=== PATIENT | female | born 1980 | race Two or more races ===

== ENCOUNTER 2016-06-09 11:17 | Emergency (ER) | payer OTHER ==
[2016-06-09 11:24] VITALS: BP 99/59; PULSE 65; TEMP 98; BMI 22.3
[2016-06-09] MEDS ORDERED: KETOROLAC TROMETHAMINE 30 MG/1 ML VIAL IM ONE (13:16)
[2016-06-09] MEDS ORDERED: CYCLOBENZAPRINE HCL 10 MG TABLET (FP) PO ONE (13:16)
--- NOTE | 2016-06-09 13:22 | PDOC ---
History of Present Illness - General Chief Complaint: Pain, Acute Stated Complaint: UPPER BACK PAIN Time Seen by Provider: 06/09/16 13:07 - History of Present Illness Initial Comments: 06/09/16 13:16 35-year-old female with a negative past medical history She is on no medications, and is ALLERGIC to Zofran She states in December, shortly after she had her baby, she pulled out her back lifting up the baby She pulled out her left upper back She states that she was on a muscle relaxer and that made her feel better She states she is no longer nursing at this time She says that in the past few days she pulled out her left upper back again lifting the child She states it hurts to move, and feels like her upper back muscles are in spasm She states it feels like it did the last time that she pulled out her back She denies any shortness of breath or cough She denies any chest pain She denies any palpitations She denies any other complaints at this time Past History - Past Medical History Allergies/Adverse Reactions: Allergies Allergy/AdvReac Type Severity Reaction Status Date / Time ondansetron HCl Allergy Verified 06/09/16 11:18 [From Zofran (as hydrochloride)] Home Medications: Ambulatory Orders Cyclobenzaprine HCl [Flexeril -] 10 mg PO TID #21 tablet 06/09/16 Other medical history: DENIES - Psycho/Social/Smoking Cessation Hx Anxiety: No Suicidal Ideation: No Smoking History: Never smoked Hx Alcohol Use: No Drug/Substance Use Hx: No Substance Use Type: None *Physical Exam - Vital Signs Last Vital Signs Temp Pulse Resp BP Pulse Ox 98 F 65 18 99/59 100 06/09/16 11:18 06/09/16 11:18 06/09/16 11:18 06/09/16 11:18 06/09/16 11:18 - Physical Exam Comments: 06/09/16 13:17 Physical exam Last Vital Signs Temp Pulse Resp BP Pulse Ox 98 F 65 18 99/59 100 06/09/16 11:18 06/09/16 11:18 06/09/16 11:18 06/09/16 11:18 06/09/16 11:18 Patient is alert and ambulatory and answering questions without difficulty Head is normocephalic and atraumatic BACK: There is no C-spine T-spine or LS-spine tenderness There is no CVA tenderness There is some nayan- scapular muscle tenderness and spasm, and some left lateral trapezius muscle tenderness and spasm There is full range of motion of the left shoulder Heart is regular rate and rhythm without murmurs gallops or heaves Abdomen is soft and nontender Lungs clear bilat Medical Decision Making - Medical Decision Making 06/09/16 13:19 Left periscapular and left lateral trapezius muscle spasm and strain We'll treat with nonsteroidals and Flexeril *DC/Admit/Observation/Transfer Diagnosis at time of Disposition: Periscapular pain, Muscle spasm, Muscle strain of left upper back - Discharge Dispostion Disposition: HOME Condition at time of disposition: Stable - Prescriptions Prescriptions: Cyclobenzaprine HCl [Flexeril -] 10 mg PO TID #21 tablet - Patient Instructions Additional Instructions: Rest, warm compresses, no lifting Hprxjh-icth-ntb-counter-3 times a day-every 8 hours Bvxmiyqk-nmrpqvmykmwe-bcx pill 3 times a day-every 8 hours-this is a muscle relaxer and may cause some drowsiness Warm showers or warm compresses Followup with your primary care physician in 24-48 hours Return immediately if you worsen in any way Take your medications as directed
[2016-06-09] MEDS ORDERED: KETOROLAC TROMETHAMINE 30 MG/1 ML VIAL ONE (13:26)
[2016-06-09] MEDS ORDERED: CYCLOBENZAPRINE HCL 10 MG TABLET (FP) ONE (13:26)
== END 2016-06-09 13:31 | disposition home or self-care (01) ==
LOC: FER 11:17
PROC: 3E0333Z Introduction of Anti-inflammatory into Peripheral Vein, Percutaneous Approach (ICD-10-PCS; principal; 2016-06-09)
DX: M54.89 Other dorsalgia (principal); M62.830 Muscle spasm of back; S29.012A Strain of muscle and tendon of back wall of thorax, initial encounter; X58.XXXA Exposure to other specified factors, initial encounter; Y93.89 Activity, other specified; Y92.9 Unspecified place or not applicable
CPT/HCPCS: 96372; 99282-25

== ENCOUNTER 2020-04-20 18:09 | Emergency (ER) | payer OTHER ==
[2020-04-20 18:34] VITALS: TEMP 98.1; BMI 22.3
[2020-04-20] MEDS ORDERED: MAG HYDROX/AL HYDROX/SIMETH -MYLANTA- ORAL SUSPENSION PO ONE (20:02)
[2020-04-20] MEDS ORDERED: FAMOTIDINE 20 MG/50 ML IVPB 20 MG/50 ML MG IVPB ONE ×2 (20:03→20:33)
[2020-04-20] MEDS ORDERED: MAG HYDROX/AL HYDROX/SIMETH 30 ML UNIT-DOSE CUP ONE (20:33)
[2020-04-20 21:02] LABS: HEMATOCRIT 24.7 % (32.4-45.2); HEMOGLOBIN 7.6 GM/dL (10.7-15.3); MCH 22.2 pg (25.7-33.7); MEAN CELL VOLUME 71.9 fl (80-96); MEAN PLT VOLUME 8.2 fl (7.5-11.1); PLATELET COUNT 231 K/MM3 (134-434); RBC 3.43 M/mm3 (3.60-5.2); RDW 18.4 % (11.6-15.6); WHITE BLOOD COUNT 8.6 K/mm3 (4.0-10.0)
[2020-04-20 21:31] LABS: CHLORIDE 105 mmol/L (98-107); POTASSIUM 3.6 mmol/L (3.5-5.1); SODIUM 136 mmol/L (136-145)
[2020-04-20] MEDS ORDERED: LACTATED RINGERS SOLUTION 1000 ML INFUS.BAG IV ONE (21:33)
[2020-04-20 21:34] LABS: CALCIUM 8.6 mg/dL (8.5-10.1)
[2020-04-20 21:35] LABS: ANION GAP 7 MMOL/L (8-16); BLOOD UREA NITROGEN 5.9 mg/dL (7-18); CO2 24 mmol/L (21-32); GLUCOSE,RANDOM 69 mg/dL (74-106)
[2020-04-20 21:38] LABS: CREATININE 0.4 mg/dL (0.55-1.3); SGOT/AST 35 U/L (15-37); SGPT/ALT 30 U/L (13-61)
[2020-04-20 21:39] LABS: BILIRUBIN,TOTAL 0.3 mg/dL (0.2-1); TOT PROT 7.2 g/dl (6.4-8.2)
[2020-04-20 21:40] LABS: ALK PHOS 93 U/L (45-117)
[2020-04-20 23:02] VITALS: BP 107/60; PULSE 95
== END 2020-04-20 23:03 | disposition home or self-care (01) ==
LOC: JER 18:09
PROC: 3E033NZ Introduction of Analgesics, Hypnotics, Sedatives into Peripheral Vein, Percutaneous Approach (ICD-10-PCS; principal; 2020-04-20)
DX: R10.13 Epigastric pain (principal); R07.9 Chest pain, unspecified; D50.9 Iron deficiency anemia, unspecified
CPT/HCPCS: 36415; 80053; 82550; 83690; 84484; 85027; 93005; 93010; 99285-25

== ENCOUNTER 2020-05-01 05:07 | Day surgery (SDC) | payer OTHER ==
[2020-05-01] MEDS ORDERED: HYDROCORTISONE SOD SUCCINATE 100 MG/2 ML VIAL IVPUSH PRN (12:09)
[2020-05-01] MEDS ORDERED: diphenhydrAMINE HCL 25 MG CAPSULE (FP) PO ONE (12:30)
[2020-05-01] MEDS ORDERED: IRON SUCROSE INJECTION 200 MG in SODIUM CHLORIDE 100 ML IVPB ONE (12:30)
[2020-05-01 12:34] LABS: HEMATOCRIT 22.7 % (32.4-45.2); MCH 22.1 pg (25.7-33.7); MCHC 30.9 g/dl (32.0-36.0); MEAN CELL VOLUME 71.5 fl (80-96); MEAN PLT VOLUME 8.2 fl (7.5-11.1); PLATELET COUNT 220 K/MM3 (134-434); RBC 3.18 M/mm3 (3.60-5.2); RDW 18.9 % (11.6-15.6); WHITE BLOOD COUNT 8.3 K/mm3 (4.0-10.0)
[2020-05-01 13:18] VITALS: BP 111/54; PULSE 100; TEMP 98.3
== END 2020-05-01 13:51 | disposition home or self-care (01) ==
LOC: JINFUSION 05:07
PROVIDERS: ATTEND Obstetrics & Gynecology
PROC: 3E033GC Introduction of Other Therapeutic Substance into Peripheral Vein, Percutaneous Approach (ICD-10-PCS; principal; 2020-05-01)
DX: D50.9 Iron deficiency anemia, unspecified (principal)
CPT/HCPCS: 36415; 82728; 85027; 96365; J1756

== ENCOUNTER 2020-05-09 04:39 | Day surgery (SDC) | payer OTHER ==
[2020-05-09] MEDS ORDERED: IRON SUCROSE INJECTION 200 MG in SODIUM CHLORIDE 90 ML IVPB ONE (10:30)
[2020-05-09 11:40] VITALS: BP 104/50; PULSE 97; TEMP 98
== END 2020-05-09 11:40 | disposition home or self-care (01) ==
LOC: JINFUSION 04:39
PROVIDERS: ATTEND Obstetrics & Gynecology
PROC: 3E033GC Introduction of Other Therapeutic Substance into Peripheral Vein, Percutaneous Approach (ICD-10-PCS; principal; 2020-05-09)
DX: D50.9 Iron deficiency anemia, unspecified (principal)
CPT/HCPCS: 96365; J1756

== ENCOUNTER 2020-07-03 08:40 | Inpatient (IN) | payer OTHER ==
[~2020-07-03 08:40] MED LIST: DEXTROSE 5%-LACTATED RINGERS 1,000 ML IV SCH
[2020-07-03] MEDS ORDERED: BUTORPHANOL TARTRATE 2 MG/ML VIAL IVPB PRN (10:51)
[2020-07-03] MEDS ORDERED: PROMETHAZINE HCL 25 MG/1 ML VIAL IVPB ONE (10:51)
[2020-07-03 11:00] VITALS: BMI 25.5
[2020-07-03] MEDS ORDERED: ELECTROLYTE-148 SOLN 1,000 ML IV SCH (11:00)
[2020-07-03] MEDS ORDERED: DINOPROSTONE 10 MG VAGINAL SUPPOSITORY VG ONE (11:04)
[2020-07-03 11:13] LABS: BASO % 0.5 % (0-2.0); EOS % 3.1 % (0-4.5); HEMATOCRIT 22.8 % (32.4-45.2); HEMOGLOBIN 7.2 GM/dL (10.7-15.3); LYMPH % 29.7 % (8-40); MCH 22.6 pg (25.7-33.7); MCHC 31.7 g/dl (32.0-36.0); MEAN CELL VOLUME 71.3 fl (80-96); MEAN PLT VOLUME 9.1 fl (7.5-11.1); MONO % 6.9 % (3.8-10.2); NEUT % 59.8 % (42.8-82.8); PLATELET COUNT 174 K/MM3 (134-434); RDW 22.1 % (11.6-15.6); WHITE BLOOD COUNT 6.4 K/mm3 (4.0-10.0)
[2020-07-03 11:14] LABS: INR 1.03 (0.83-1.09); PROTHROMBIN TIME (PATIENT) 12.4 SEC (9.7-13.0)
[2020-07-03 11:16] LABS: ACTIVATED PTT 25.3 SECONDS (25.2-36.5)
[2020-07-03 11:31] LABS: POTASSIUM 3.6 mmol/L (3.5-5.1)
[2020-07-03 11:32] LABS: BLOOD UREA NITROGEN 5.2 mg/dL (7-18); CALCIUM 8.4 mg/dL (8.5-10.1)
[2020-07-03 11:36] LABS: CREATININE 0.3 mg/dL (0.55-1.3)
[2020-07-03] MEDS ORDERED: OXYTOCIN 30 UNITS in 0.9% NS 30 UNIT/500 ML INFUS.BAG IVPB ONE (12:14)
[2020-07-03] MEDS ORDERED: OXYTOCIN 30 UNITS in 0.9% NS 30 UNIT/500 ML INFUS.BAG IVPB SCH (12:15)
[2020-07-03 14:08] LABS: ANISOCYTOSIS 1+; MACROCYTOSIS 0; PLATELET ESTIMATE NORMAL
[2020-07-03] MEDS ORDERED: BUTORPHANOL TARTRATE 2 MG/ML VIAL ONE (14:28)
[2020-07-03] MEDS ORDERED: PROMETHAZINE HCL 25 MG/1 ML VIAL ONE (14:28)
[2020-07-03] MEDS ORDERED: FENTANYL/BUPIVACAINE/NS/PF - PCEA - 50 ML DISP.SYRIN EP ONE (22:30)
[2020-07-03] MEDS ORDERED: PCA PUMP NR ONE (22:30)
[2020-07-04] MEDS ORDERED: NALOXONE HCL 0.4 MG/ML VIAL IVPUSH PRN ×2 (01:18→01:20)
[2020-07-04] MEDS ORDERED: FENTANYL/BUPIVACAINE/NS/PF - PCEA - 50 ML DISP.SYRIN EP SCH ×2 (01:30)
[2020-07-04] MEDS ORDERED: FENTANYL/BUPIVACAINE/NS/PF - PCEA - 50 ML DISP.SYRIN EP ONE ×2 (02:50→06:11)
[2020-07-04] MEDS ORDERED: PCA PUMP NR ONE (06:11)
[2020-07-04] MEDS ORDERED: diphenhydrAMINE HCL 25 MG CAPSULE (FP) PO PRN (09:53)
[2020-07-04] MEDS ORDERED: WITCH HAZEL 50% (TUCKS) 40 PAD/JAR PAD TP PRN (09:53)
[2020-07-04] MEDS ORDERED: METHYLERGONOVINE MALEATE 0.2 MG/1 ML AMP IM PRN (09:53)
[2020-07-04] MEDS ORDERED: BENZOCAINE 20% 57 GM BOTTLE TP PRN (09:53)
[2020-07-04] MEDS ORDERED: BENZOCAINE 28 GM HEMORRHOIDAL OINTMENT RC PRN (09:53)
[2020-07-04] MEDS ORDERED: PROPOFOL 20 ML ONE (10:36)
[2020-07-04] MEDS ORDERED: SUCCINYLCHOLINE CHLORIDE 200 MG/10 ML SYRINGE ONE (10:36)
[2020-07-04] MEDS ORDERED: morphine SULFATE/PF 0.5 MG/ML (2cc Syringe - QUVA) ONE (11:06)
[2020-07-04] MEDS ORDERED: ePHEDrine SULFATE 50 MG/1 ML AMPULE ONE (11:13)
[2020-07-04] MEDS ORDERED: PHENYLEPHRINE HCL 10 MG/1 ML SINGLE DOSE VIAL ONE (11:15)
[2020-07-04] MEDS ORDERED: AZITHROMYCIN IVPB 500 MG/250 ML BAG IVPB ONE (11:15)
[2020-07-04 12:26] LABS: CORD HCO3 22.7 mmHg (20-29); CORD PCO2 42.9 mmHg (30-78); CORD pH 7.341 (7.14-7.44)
[2020-07-04 12:32] LABS: CORD HCO3 24.9 mmHg (20-29); CORD PCO2 62.8 mmHg (30-78); CORD pH 7.216 (7.14-7.44)
[2020-07-04] MEDS ORDERED: OXYTOCIN 20 UNITS in 0.9% NS 20 UNIT/1,000 ML INFUS.BAG IV ONE (12:32)
[2020-07-04] MEDS ORDERED: morphine SULFATE/PF 0.5 MG/ML (2cc Syringe - QUVA) EP ONE (12:40)
[2020-07-04] MEDS: OXYTOCIN 20 UNITS in 0.9% NS 20 UNIT/1,000 ML INFUS.BAG IV SCH ×2 (13:00→23:01)
[2020-07-04] MEDS: IBUPROFEN 800 MG/8 ML IJ IVPB PRN (17:51)
[2020-07-05] MEDS: IBUPROFEN 600 MG TABLET (FP) PO PRN ×3 (02:45→22:09)
[2020-07-05] MEDS: SIMETHICONE 80 MG TAB.CHEW (FP) PO PRN ×4 (02:46→22:10)
[2020-07-05 09:33] LABS: HEMATOCRIT 27.3 % (32.4-45.2); HEMOGLOBIN 9.1 GM/dL (10.7-15.3); MCH 25.1 pg (25.7-33.7); MCHC 33.4 g/dl (32.0-36.0); MEAN CELL VOLUME 75.3 fl (80-96); MEAN PLT VOLUME 9.7 fl (7.5-11.1); PLATELET COUNT 152 K/MM3 (134-434); RBC 3.63 M/mm3 (3.60-5.2); RDW 21.3 % (11.6-15.6); WHITE BLOOD COUNT 9.9 K/mm3 (4.0-10.0)
[2020-07-05] MEDS ORDERED: BISACODYL 10 MG SUPP.RECT PR PRN (09:53)
[2020-07-05] MEDS ORDERED: oxyCODONE HCL 5 MG TABLET PO PRN ×2 (09:53)
[2020-07-05] MEDS ORDERED: DIPHTH,PERTUSS(ACELL),TET 0.5 ML DISP.SYRIN IM ONE (10:00)
[2020-07-05] MEDS: IBUPROFEN 800 MG/8 ML IJ IVPB PRN (10:14)
[2020-07-05] MEDS: ACETAMINOPHEN 325 MG TABLET (FP) PO PRN ×2 (17:39→22:09)
[2020-07-06] MEDS: IBUPROFEN 600 MG TABLET (FP) PO PRN (09:41)
[2020-07-06] MEDS: SIMETHICONE 80 MG TAB.CHEW (FP) PO PRN (09:42)
[2020-07-06 10:58] VITALS: BP 86/55; PULSE 80; TEMP 98
[2020-07-06] MEDS ORDERED: SENNOSIDES/DOCUSATE COMBO (SENNA PLUS) TABLET (UD) PO PRN (22:00)
== END 2020-07-06 13:15 | disposition home or self-care (01) | DRG 540 ==
LOC: JLDR 08:40 → J3W 07-04 14:00 → UNDODISIN 07-06 13:15
PROVIDERS: ADMIT Obstetrics & Gynecology; ATTEND Obstetrics & Gynecology
PROC: 3E033VJ Introduction of Other Hormone into Peripheral Vein, Percutaneous Approach (ICD-10-PCS; principal; 2020-07-03)
PROC: 10D00Z1 Extraction of Products of Conception, Low, Open Approach (ICD-10-PCS; 2020-07-04)
DX: O34.219 Maternal care for unspecified type scar from previous cesarean delivery (principal); O62.0 Primary inadequate contractions; O66.41 Failed attempted vaginal birth after previous cesarean delivery; O69.81X0 Labor and delivery complicated by cord around neck, without compression, not applicable or unspecified; O99.02 Anemia complicating childbirth; D64.9 Anemia, unspecified; O36.63X0 Maternal care for excessive fetal growth, third trimester, not applicable or unspecified; O40.3XX0 Polyhydramnios, third trimester, not applicable or unspecified; Z3A.39 39 weeks gestation of pregnancy; Z37.0 Single live birth
CPT/HCPCS: 36415; 36430; 36600; 80048; 82803; 85025; 85027; 85461; 85610; 85730; 86780; 86850; 86900; 86901; 86922; 86999; 88307-TC; 90715; P9021; P9038; P9058